=== PATIENT | male | born 1995 | race Caucasian/White ===

== ENCOUNTER 2020-12-09 20:28 | Inpatient (IN) | payer OTHER, SELFPAY ==
[2020-12-09 20:29] VITALS: BP 140/83; PULSE 87; RESP 18; TEMP 36.8; O2SAT 97; BMI 28.5
[2020-12-09 20:47] LABS: Bacteria 0 SEEN /hpf (None Seen); Color, Urine Yellow (Yellow); Glucose, Dipstick Normal (Normal); Ketone-Dipstick Negative (Negative); Leukocyte Esterase-Dipstick Negative /ul (Negative); Mucous, Urine 0 SEEN /hpf (<or=2+); Nitrite-Dipstick Negative (Negative); Occult Blood-Urine Negative /ul (Negative); Protein-Dipstick Negative (Negative); Red Blood Cells-Urine 0 SEEN /hpf (0-5); Squamous Epithelial Cells - UA 0 SEEN /hpf (0-5); Urine Bilirubin Dipstick Negative (Negative); Urine Clarity Clear (Clear); Urine Urobilinogen Normal (Normal); Urine pH 6.5 (5.0 - 8.0); White Blood Cells 0 SEEN /hpf (0-5)
[2020-12-09 21:05] LABS: Absolute Lymphocyte Count 2.08 X10^3/uL (0.83-4.51); Absolute Neutrophil Count 7.7 X10^3/uL (2.0-7.7); Basophil# 0.02 X10^3/uL; Basophil% 0.2 % (0-1); Eosinophil# 0.02 X10^3/uL; Eosinophils% 0.2 % (0-5); Hematocrit 43.6 % (40-54); Hemoglobin 14.2 g/dL (13.0-16.5); Lymphocyte # 2.08 X10^3/ul (0.83-4.51); Lymphocyte % 18.6 % (19-41); Mean Corp Hgb Conc 32.6 g/dL (32-36); Mean Corpuscular Hgb 28.5 pg (27.0-32.0); Mean Corpuscular Volume 87.4 fL (80-94); Mean Platelet Vol. 10.9 fl (6.2-12.0); Monocyte# 1.37 X10^3/uL; Monocyte% 12.2 % (0-10); NRBC Flagged by Analyzer 0 % (0-5); Neutrophil % 68.6 % (47-70); Platelet Count 281 K/mm3 (150-450); RBC Distribution Width CV 12.5 % (11.6-14.6); RBC Distribution Width SD 39.8 fl (35.1-43.9); Red Blood Count 4.99 M/mm3 (4.6-6.2); White Blood Count 11.2 K/mm3 (4.4-11.0)
--- NOTE | 2020-12-09 21:11 | CT_ITS ---
INDICATION: Lower abd pain b/l eval for appendicitis EXAMINATION: CT Abdomen And Pelvis W/ Contrast Injection TECHNIQUE: Helically acquired images were obtained of the abdomen and pelvis after IV contrast. A radiation dose optimization technique was used for this scan. IV Contrast dosage and agent: IV 100mL Isovue-370 Oral contrast: None. COMPARISON: None. FINDINGS: Visualized lung bases: Unremarkable Liver: Diffusely hypodense consistent with fatty liver. Gallbladder: Unremarkable Spleen: Unremarkable Pancreas: Unremarkable Adrenal Glands: Unremarkable Kidneys: Unremarkable Vasculature: Unremarkable GI Tract: Scattered colonic diverticula. Short segment bowel wall thickening of the descending colon with surrounding mesenteric fat stranding. No free air or focal fluid collection. Lymphadenopathy: None Peritoneum: Small volume complex free fluid in the pelvis. Bladder: Unremarkable Reproductive organs: Unremarkable Bones/Soft tissues: No suspicious osseous or soft tissue lesions CT/Abdomen/Pelvis W IV Cont ONLY IMPRESSION: Acute descending colon diverticulitis. No focal fluid collection or free air. There is a small volume of complex free fluid in the pelvis. This could represent a contained perforation. Fatty liver. Electronically Signed: Umesh Welsh MD at 21:56 EDT Tel , Service support ,
[2020-12-09 21:17] LABS: Anion Gap 3 (5-15); BUN 9 mg/dL (7-18); Calcium,Total 9.4 mg/dL (8.5-10.1); Chloride 105 mmol/L (98-107); Creatinine, Serum 0.82 mg/dL (0.70-1.30); EST Glomerular Filtration Rate 120 mL/min (>60); Est Glom Filt Rate - Afr Amer 146 mL/min (>60); Estimated Creatinine Clearance 154.28 ml/min; Glucose 87 mg/dL (74-106); Potassium 3.9 mmol/L (3.5-5.1); Sodium Level 139 mmol/L (136-145)
--- NOTE | 2020-12-09 21:29 | EX.ED.DYSGE1 ---
HPI History of Present Illness Chief Complaint: Abd Pain Informant: patient Narrative Narrative: Patient is a 25-year-old previously healthy male who presents to the emergency department for abdominal pain over the past 24 hours. He states whenever he moves it becomes severe. While at rest it is very minimal typically at a 4 out of 10. Majority the pain is in the left lower quadrant but does go to the right side. He has never had this before. He denies any previous abdominal surgeries. No fevers or chills. No vomiting. He denies any change in bowel movements. No urinary symptoms. The pain does not radiate to his back. No chest pain or shortness of breath. PFSH PFSH Home Medications montelukast 10 mg PO DAILY 12/09/20 [History Last Taken Unknown] Allergy/AdvReac Type Severity Reaction Status Date / Time Penicillins Allergy PT UNSURE Verified 12/09/20 20:33 OF REACTION Social History Smoking Status: Never smoker ROS ROS ED Constitutional Constitutional ED: Denies chills or fever(s) Eyes Eyes: Denies change in vision ENT ENT ED: Denies epistaxis or rhinorrhea Cardiovascular Cardiovascular: Denies chest pain or palpitations Respiratory/Chest Respiratory/Chest: Denies cough or dyspnea Gastrointestinal Gastrointestinal: Reports abdominal pain and constipation; Denies nausea or vomiting Genitourinary Genitourinary ED: Denies dysuria, hematuria or urinary frequency Musculoskeletal Musculoskeletal: Denies back pain or neck pain Integumentary Denies rash Neurologic Neurologic: Denies dizziness, headache(s) or weakness EXAM Physical Exam Const Vital Signs: 12/09/20 20:29 Temperature 98.3 F Temperature Source Temporal Pulse Rate 87 Respiratory Rate 18 Blood Pressure 140/83 H Blood Pressure Mean 102 Pulse Ox 97 Oxygen Delivery Method Room Air Positive well nourished and well developed General Appearance ED: well developed and NAD HEENT Reports normocephalic and head/scalp atraumatic Eyes PERRL and EOMs intact bilaterally Neck supple General: Negative for tenderness Chest Wall inspection of chest normal Resp normal respiratory effort and clear to auscultation bilaterally Auscultation: Negative for rales, rhonchi or wheezes Cardio regular rate, regular rhythm and no murmurs GI normal to inspection, nondistended, normoactive bowel sounds GI Narrative: There is tenderness to light palpation on the left side. There is voluntary guarding. There is mild tenderness on the right lower quadrant but nothing in the upper quadrants. Negative psoas sign. Palpation: soft; Negative for rebound tenderness present Back/Spine no CVA tenderness Extremity normal to inspection General Extremety ED: Negative for edema or tenderness General Extremity: Negative for edema Neuro Sensorium / Orientation: alert Motor Exam: strength 5/5 throughout Psych mental status grossly normal Skin no rashes or lesions noted MDM MDM MDM Narrative Medical decision making narrative: Patient presents to the emergency department for abdominal pain. Patient is very tender in the left lower quadrant. He does have some guarding present. Basic lab work being obtained along with CT scan of the abdomen/pelvis. While at rest the patient's pain is very minimal so we will hold off on pain medications at this time. Patient CT scan showed acute diverticulitis with potential abscess as there is free fluid present. Given patient's significant tenderness and guarding general surgery was consulted., Dr. Bosch evaluated the patient at bedside. He felt the patient likely has Crohn's disease as he has a history of diarrhea since childhood. He recommend the patient be transferred to a facility with gastroenterology coverage. We are currently working on this but bed shortage across the [place] limiting our ability to do this. He is started on Cipro and Flagyl as he does have an unknown reaction to penicillin. Patient otherwise has remained stable throughout ED stay. He is signed out due to end of shift currently awaiting acceptance at outside facility. Lab Data Labs: Laboratory Results - last 24 hr 12/09/20 12/09/20 12/09/20 20:41 20:53 20:53 WBC 11.2 H RBC 4.99 Hgb 14.2 Hct 43.6 MCV 87.4 MCH 28.5 MCHC 32.6 RDW Std Deviation 39.8 RDW Coeff of Dimitrios 12.5 Plt Count 281 MPV 10.9 Immature Gran % (Auto) 0.200 Neut % (Auto) 68.6 Lymph % (Auto) 18.6 L [place] % (Auto) 12.2 H Eos % (Auto) 0.2 Baso % (Auto) 0.2 Absolute Neuts (auto) 7.7 Absolute Lymphs (auto) 2.08 Nucleated RBC % 0 Sodium 139 Potassium 3.9 Chloride 105 Carbon Dioxide 31.0 Anion Gap 3 L BUN 9 Creatinine 0.82 Estim Creat Clear Calc 154.28 Est GFR (MDRD) Af Amer 146 Est GFR (MDRD) Non-Af 120 BUN/Creatinine Ratio 11.0 Glucose 87 Calcium 9.4 Total Bilirubin 0.60 AST 11 L ALT 49 Alkaline Phosphatase 63 Total Protein 8.4 H Albumin 4.6 Globulin 3.8 Albumin/Globulin Ratio 1.2 Lipase Urine Color Yellow Urine Clarity Clear Urine pH 6.5 Ur Specific [place] 1.010 Urine Protein Negative Urine Glucose (UA) Normal Urine Ketones Negative Urine Occult Blood Negative Urine Nitrite Negative Urine Bilirubin Negative Urine Urobilinogen Normal Ur Leukocyte Esterase Negative Urine RBC 0 SEEN Urine WBC 0 SEEN Ur Squamous Epith Cells 0 SEEN Urine Bacteria 0 SEEN Urine Mucus 0 SEEN 12/09/20 20:53 WBC RBC Hgb Hct MCV MCH MCHC RDW Std Deviation RDW Coeff of Dimitrios Plt Count MPV Immature Gran % (Auto) Neut % (Auto) Lymph % (Auto) [place] % (Auto) Eos % (Auto) Baso % (Auto) Absolute Neuts (auto) Absolute Lymphs (auto) Nucleated RBC % Sodium Potassium Chloride Carbon Dioxide Anion Gap BUN Creatinine Estim Creat Clear Calc Est GFR (MDRD) Af Amer Est GFR (MDRD) Non-Af BUN/Creatinine Ratio Glucose Calcium Total Bilirubin AST ALT Alkaline Phosphatase Total Protein Albumin Globulin Albumin/Globulin Ratio Lipase 61 L Urine Color Urine Clarity Urine pH Ur Specific [place] Urine Protein Urine Glucose (UA) Urine Ketones Urine Occult Blood Urine Nitrite Urine Bilirubin Urine Urobilinogen Ur Leukocyte Esterase Urine RBC Urine WBC Ur Squamous Epith Cells Urine Bacteria Urine Mucus Radiography Diagnostic Testing: Radiology Impression Abdomen/Pelvis CT 12/09/20 21:11 IMPRESSION: Acute descending colon diverticulitis. No focal fluid collection or free air. There is a small volume of complex free fluid in the pelvis. This could represent a contained perforation. Fatty liver. Electronically Signed: Umesh Welsh MD at 21:56 EDT Tel , Service support , Discharge Plan Triage Chief Complaint: Abd Pain ED Provider: Bentley Eli Dx/Rx/DC Orders Clinical Impression: Diverticulitis of intestine with abscess Prescriptions: No Action montelukast 10 mg tablet 10 mg PO DAILY RF: 0 Primary Care Provider: Gerardo Santo Referrals: Gerardo Santo MD [Primary Care Provider] - Disposition Disposition: Acute Care Hospital
[2020-12-09 21:48] LABS: Lipase 61 U/L (73-393)
[2020-12-09 21:51] LABS: ALB/GLOB Ratio 1.2 RATIO (0.9-2.4); AST(SGOT) 11 U/L (15-37); Alanine Aminotransfer ALT/SGPT 49 U/L (16-61); Albumin, Serum 4.6 g/dL (3.2-5.0); Alkaline Phosphatase 63 U/L (45-117); Globulin 3.8 g/dL (2.2-4.2); Protein, Total 8.4 g/dL (6.4-8.2)
--- NOTE | 2020-12-09 22:07 | NURSING ---
DR LU PAGED
[2020-12-09] MEDS: Ciprofloxacin 400 MG/200 ML BAG 200 MG IV (22:26)
--- NOTE | 2020-12-09 22:41 | CON.PCM.SX_ITS ---
Assessment & Plan Assessment/Plan (1) Colitis: PLAN: Believe the patient has probably Crohn's disease. He has been hav ing diarrhea for months acute onset of abdominal pain CAT scan shows a fairly thickened sigmoid colon not a significant amount of diverticular disease identified. In this setting I think this represents Crohn's disease. Believe he is going to need to be at a larger institution that has a computer equipment installer and colorectal surgery and I am recommending he be transferred to tertiary referral center. At this present time I do not believe he needs to have an emergent surgical abdomen however if his pain were to increase he is certainly going to have to have that sigmoid colon removed which once again should be done by a colorectal surgeon. HPI Consult Data Date of Consult: 12/09/20 HPI Narrative HPI Narrative: NENA AUSTIN, is a 25 M who presents to the emergency department for abdominal pain over the past 24 hours. He states whenever he moves it becomes severe. While at rest it is very minimal typically at a 4 out of 10. Majority the pain is in the left lower quadrant but does go to the right side. He has never had this before. He denies any previous abdominal surgeries. No fevers or chills. No vomiting. He denies any change in bowel movements. No urinary symptoms. The pain does not radiate to his back. No chest pain or shortness of breath. Patient states that he has been having diarrhea for the last 4 or 5 months and has not seek any medical attention for this. He has no family history of Crohn's disease or ulcerative colitis. PFS Home Medications montelukast 10 mg PO DAILY 12/09/20 [History Last Taken Unknown] Allergy/AdvReac Type Severity Reaction Status Date / Time Penicillins Allergy PT UNSURE Verified 12/09/20 20:33 OF REACTION Social History Smoking Status: Never smoker ROS Cardiovascular Cardiovascular: Denies chest pain or chest pain at rest Respiratory/Chest Respiratory/Chest: Denies cough, dyspnea or shortness of breath at rest Gastrointestinal Gastrointestinal: Reports abdominal pain, bloating and diarrhea; Denies nausea, rectal bleeding or vomiting Lab / Micro Data Result Diagrams: 12/09/20 20:53 12/09/20 20:53 Labs: Laboratory Results - last 24 hr 12/09/20 20:41: Urine Color Yellow, Urine Clarity Clear, Urine pH 6.5, Ur Specific [place] 1.010, Urine Protein Negative, Urine Glucose (UA) Normal, Urine Ketones Negative, Urine Occult Blood Negative, Urine Nitrite Negative, Urine Bilirubin Negative, Urine Urobilinogen Normal, Ur Leukocyte Esterase Negative, Urine RBC 0 SEEN, Urine WBC 0 SEEN, Ur Squamous Epith Cells 0 SEEN, Urine Bacteria 0 SEEN, Urine Mucus 0 SEEN 12/09/20 20:53: WBC 11.2 H, RBC 4.99, Hgb 14.2, Hct 43.6, MCV 87.4, MCH 28.5, MCHC 32.6, RDW Std Deviation 39.8, RDW Coeff of Dimitrios 12.5, Plt Count 281, MPV 10.9, Immature Gran % (Auto) 0.200, Neut % (Auto) 68.6, Lymph % (Auto) 18.6 L, [place] % (Auto) 12.2 H, Eos % (Auto) 0.2, Baso % (Auto) 0.2, Absolute Neuts (auto) 7.7, Absolute Lymphs (auto) 2.08, Nucleated RBC % 0 12/09/20 20:53: Sodium 139, Potassium 3.9, Chloride 105, Carbon Dioxide 31.0, Anion Gap 3 L, BUN 9, Creatinine 0.82, Estim Creat Clear Calc 154.28, Est GFR (MDRD) Af Amer 146, Est GFR (MDRD) Non-Af 120, BUN/Creatinine Ratio 11.0, Glucose 87, Calcium 9.4, Total Bilirubin 0.60, AST 11 L, ALT 49, Alkaline Phosphatase 63, Total Protein 8.4 H, Albumin 4.6, Globulin 3.8, Albumin/Globulin Ratio 1.2 12/09/20 20:53: Lipase 61 L Radiology Impression Abdomen/Pelvis CT 12/09/20 21:11 IMPRESSION: Acute descending colon diverticulitis. No focal fluid collection or free air. There is a small volume of complex free fluid in the pelvis. This could represent a contained perforation. Fatty liver. Electronically Signed: Umesh Welsh MD at 21:56 EDT Tel , Service support ,
--- NOTE | 2020-12-09 22:51 | ED.RN ---
[facility] CALLED FOR TRANSFER
[2020-12-09] MEDS: metroNIDAZOLE 500 MG/100 ML BAG 100 MG IV (23:11)
[2020-12-09 23:12] VITALS: BP 132/76; PULSE 84; RESP 16; O2SAT 98
--- NOTE | 2020-12-09 23:22 | ED.RN ---
PATIENT HAS BEEN ADDED TO THE WAIT LIST AT [facility]
[2020-12-10] VITALS (9 sets, daily range): BP systolic 123–143; BP diastolic 74–88; PULSE 58–87; RESP 14–16; TEMP 36.6; O2SAT 98–100; BMI 28.3
[2020-12-10] MEDS: Ketorolac 30 MG/ML Syringe IV (11:40)
--- NOTE | 2020-12-10 13:37 | NURSING ---
CALLED [facility] FOR UPDATE ON BED STATUS. NOTHING YET. NOT HIGH PRIORITY, NOT LOW.
--- NOTE | 2020-12-10 16:09 | ED.RN ---
PT INQUIRING ABOUT GOING HOME AND F/U OUT PATIENT. DR MUSE AND ALO CONSULTED ON MATTER. FEEL ITS BEST FOR HIM TO STAY UNDER OBSERVATION WHILE WAITING FOR TRASNFER. AND ARE LOOKING TO ADMIT WHILE WAITING ON TRANSFER. PT UPDATED ON PLAN.
--- NOTE | 2020-12-10 17:10 | ED.RN ---
DR VERA AT BEDSIDE. TO ADMIT PT TO MED/SURG TO MONITOR.
--- NOTE | 2020-12-10 17:25 | PCM.HP.STD ---
Documented by User: Rosa M Brooks NP-[place] 12/10/20 17:42 HPI - General HPI Narrative NENA AUSTIN, is a 25 M who presents with complaints of abdominal pain. Patient states that yesterday when he presented to the ER his abdomen was painful with any palpation and felt tight. Patient was held in ER awaiting a transfer to [facility] due to possible contained perforation however there are no beds available so he will be admitted to our MedSurg unit. Patient states today he is feeling better after receiving IV fluids and antibiotics. Patient denies fever, chills, shortness of breath, cough, chest pain, nausea, vomiting at this time. [facility] Home Medications montelukast 10 mg PO DAILY 12/09/20 [History Last Taken Unknown] cetirizine [Zyrtec] 10 mg PO DAILY 12/10/20 [History Last Taken 12/09/20] fluticasone propionate [Flonase] 1 spray INTRANASAL DAILY 12/10/20 [History Last Taken Unknown] Allergy/AdvReac Type Severity Reaction Status Date / Time Penicillins Allergy PT UNSURE Verified 12/09/20 20:33 OF REACTION Surgical History (Updated 12/10/20 @ 18:03 by Jessica Hector) [place] teeth extracted Social History Smoking Status: Never smoker ROS Constitutional Constitutional: Denies anorexia, chills, fatigue, fever(s) or weakness Cardiovascular Cardiovascular: Denies chest pain, edema or palpitations Respiratory/Chest Respiratory/Chest: Denies cough, shortness of breath at rest or shortness of breath with exertion Gastrointestinal Gastrointestinal: Reports abdominal pain and constipation; Denies diarrhea, nausea or vomiting Genitourinary Genitourinary: Denies dysuria Musculoskeletal Musculoskeletal: Denies back pain, extremity pain, joint pain or joint stiffness Integumentary Integumentary: Denies dry skin Neurologic Neurologic: Denies abnormal gait, abnormal speech, confusion, dizziness or focal weakness Psychiatric Psychiatric: Denies anxiety or depression Endocrine Endocrinology: Denies change in body appearance Hematologic/Lymphatic Hematologic/Lymphatic: Denies easy bleeding or easy bruising Vital Signs Vital Signs Vital Signs: 12/09/20 20:29 12/09/20 23:12 12/10/20 02:52 Temperature 98.3 F Temperature Source Temporal Pulse Rate 87 84 Respiratory Rate 18 16 16 Blood Pressure 140/83 H 132/76 H Blood Pressure Mean 102 94 Pulse Ox 97 98 Oxygen Delivery Method Room Air Room Air 12/10/20 05:37 12/10/20 07:27 12/10/20 11:19 Temperature 97.8 F Temperature Source Oral Pulse Rate 58 L 71 61 Respiratory Rate 16 16 14 Blood Pressure 143/77 H 130/88 H 129/79 H Blood Pressure Mean 99 102 95 Pulse Ox 98 100 99 Oxygen Delivery Method Room Air Room Air Room Air 12/10/20 13:54 12/10/20 15:57 12/10/20 17:08 Temperature Temperature Source Pulse Rate 87 72 77 Respiratory Rate 16 16 16 Blood Pressure 123/74 H 128/74 H 124/87 H Blood Pressure Mean 90 92 99 Pulse Ox 99 99 99 Oxygen Delivery Method Room Air Weight Weight: 216 lb Body Mass Index (BMI) 28.5 Physical Exam Const alert, oriented x3 and no apparent distress General Appearance: cooperative HEENT normocephalic and head/scalp atraumatic Eyes conjunctivae normal and no scleral icterus Neck supple and no JVD General: trachea midline Resp normal respiratory effort, normal air movement and clear to auscultation bilaterally Cardio regular rate, regular rhythm, S1 normal heart sound and S2 normal heart sound GI normal to inspection, nondistended, normoactive bowel sounds, soft to palpation and non-tender Extremity normal capillary refill and no clubbing, cyanosis or edema General Extremity: no tenderness to palpation of joints or extremities Skin General Skin Exam: no breakdown and turgor normal Lesions: no lesions Rashes: no rashes Neuro no focal motor deficits and no sensory deficits noted Speech: speech normal Motor Exam: Negative for general weakness Psych thought process normal, cooperative and affect normal Appearance: appropriate Results Lab / Micro Data Result Diagrams: 12/09/20 20:53 12/09/20 20:53 Labs: Laboratory Results - last 24 hr 12/09/20 20:41: Urine Color Yellow, Urine Clarity Clear, Urine pH 6.5, Ur Specific [place] 1.010, Urine Protein Negative, Urine Glucose (UA) Normal, Urine Ketones Negative, Urine Occult Blood Negative, Urine Nitrite Negative, Urine Bilirubin Negative, Urine Urobilinogen Normal, Ur Leukocyte Esterase Negative, Urine RBC 0 SEEN, Urine WBC 0 SEEN, Ur Squamous Epith Cells 0 SEEN, Urine Bacteria 0 SEEN, Urine Mucus 0 SEEN 08/23/21 20:53: WBC 11.2 H, RBC 4.99, Hgb 14.2, Hct 43.6, MCV 87.4, MCH 28.5, MCHC 32.6, RDW Std Deviation 39.8, RDW Coeff of Dimitrios 12.5, Plt Count 281, MPV 10.9, Immature Gran % (Auto) 0.200, Neut % (Auto) 68.6, Lymph % (Auto) 18.6 L, [place] % (Auto) 12.2 H, Eos % (Auto) 0.2, Baso % (Auto) 0.2, Absolute Neuts (auto) 7.7, Absolute Lymphs (auto) 2.08, Nucleated RBC % 0 12/09/20 20:53: Sodium 139, Potassium 3.9, Chloride 105, Carbon Dioxide 31.0, Anion Gap 3 L, BUN 9, Creatinine 0.82, Estim Creat Clear Calc 154.28, Est GFR (MDRD) Af Amer 146, Est GFR (MDRD) Non-Af 120, BUN/Creatinine Ratio 11.0, Glucose 87, Calcium 9.4, Total Bilirubin 0.60, AST 11 L, ALT 49, Alkaline Phosphatase 63, Total Protein 8.4 H, Albumin 4.6, Globulin 3.8, Albumin/Globulin Ratio 1.2 12/09/20 20:53: Lipase 61 L Micro: Microbiology 12/09/20 23:15 Mucosa - Nose SARS-CoV-2 Antigen (Rapid) - Final Radiology Impression Abdomen/Pelvis CT 12/09/20 21:11 IMPRESSION: Acute descending colon diverticulitis. No focal fluid collection or free air. There is a small volume of complex free fluid in the pelvis. This could represent a contained perforation. Fatty liver. Electronically Signed: Umesh Welsh MD at 21:56 EDT Tel , Service support , Assessment & Plan Assessment/Plan (1) Diverticulitis of intestine with abscess: QUALIFIERS: Diverticulitis bleeding: without bleeding Diverticulitis site: large intestine Qualified Code(s): K57.20 - Diverticulitis of large intestine with perforation and abscess without bleeding (2) Colitis: PLAN: 1. Diverticulitis of intestine with abscess and colitis with contained perforation -Admit to [facility] -Continue Cipro and Flagyl, patient received first dose in ER -Full liquid diet ordered -Consult surgery, Dr. Bosch saw patient during initial evaluation in ER. -CBC and BMP ordered -Vital signs per protocol -As needed Tylenol and morphine ordered for pain DVT prophylaxis-subcu Lovenox This patient was seen by AURELIANO Chandler under the supervision of Dr. Malin. Documented by User: Dr. Dennis Malin, 12/10/20 18:38 HPI - General General Date of Admission: 12/10/20 [facility] Home Medications montelukast 10 mg PO DAILY 12/09/20 [History Last Taken Unknown] cetirizine [Zyrtec] 10 mg PO DAILY 12/10/20 [History Last Taken 12/09/20] fluticasone propionate [Flonase] 1 spray INTRANASAL DAILY 12/10/20 [History Last Taken Unknown] Allergy/AdvReac Type Severity Reaction Status Date / Time Penicillins Allergy PT UNSURE Verified 12/09/20 20:33 OF REACTION Surgical History (Updated 12/10/20 @ 18:03 by Jessica Hector) [place] teeth extracted Social History Smoking Status: Never smoker Results Lab / Micro Data Result Diagrams: 12/09/20 20:53 12/09/20 20:53 Charges/Coding Addendum Addendum: Patient was seen and examined independently of Mercedes Brooks today in the emergency room, he was seen yesterday for complaints of left-sided abdominal pain and the work-up showed possible diverticulitis and also abdominal fluid and there was a question of a possible perforation, general surgery was contacted and requested the patient be transferred to [facility] for further care, [facility] call today to states that they did not have a bed and they were not expecting to have a bed open for many hours, due to this, the patient will be admitted to [place] [id number] and seen by general surgery here. Patient tells me that his abdominal discomfort is greatly improved today, he feels as if he could have a bowel movement today he has not had 1 since he has been in the emergency room. Patient denies any blood in stool, he states that for a few days prior to coming into the ER he has had many loose stools-he denies any watery stools. On examination he appeared in good health and spirits. Vital signs as documented. Skin warm and dry and without overt rashes. Neck without JVD, neck was supple, trachea midline, thyroid was normal. Lungs clear bilaterally, normal air movement was noted. Heart exam notable for regular rhythm, normal sounds and absence of murmurs, rubs or gallops. Abdomen unremarkable and without evidence of organomegaly, masses, or abdominal aortic enlargement. Bowel sounds are present, abdomen is not distended. Extremities nonedematous, no cyanosis was noted, no clubbing was noted. Neuro: Cranial nerves II through XII are grossly intact, no focal motor deficits were noted, sensation to light touch and pinprick intact, motor exam 5/5 throughout. Psych: Patient is alert and oriented x3, he does not appear anxious or depressed, he does not appear agitated. Patient's abdomen appears soft today on examination, there is no rebound abdominal tenderness noted. Patient will be admitted to [place] [address] and he will be maintained on IV antibiotics and seen by general surgery. It is possible patient will not need to be transferred to [facility] for further care if he continues to improve. I have reviewed Mercedes Brooks's history and physical including her medical assessment and plan of care and endorse it. Visit Charges Inpatient E&M: 70226 Init Hosp L3
--- NOTE | 2020-12-10 17:31 | NURSING ---
317 MARISELA DIVERTICULITIS, COLITIS
--- NOTE | 2020-12-10 18:06 | PCS.PANDOC ---
PANDEMIC DOCUMENTATION INITIATED: Date: 12/02/2020 Time: 190
[2020-12-10] MEDS: metroNIDAZOLE 500 MG/100 ML BAG 100 MG IV (20:10)
[2020-12-10] MEDS: 0.9% Saline Lock 10 ML Syringe IV (20:11)
[2020-12-10] MEDS: Ciprofloxacin 400 MG/200 ML BAG 200 MG IV (21:35)
[2020-12-11 02:24] VITALS: BP 127/59; PULSE 61; RESP 16; TEMP 36.4; O2SAT 98
[2020-12-11] MEDS: metroNIDAZOLE 500 MG/100 ML BAG 100 MG IV ×3 (06:21→22:58)
[2020-12-11 06:24] VITALS: BP 121/71; PULSE 68; RESP 16; TEMP 36.7; O2SAT 98
[2020-12-11 07:35] LABS: Absolute Lymphocyte Count 1.56 X10^3/uL (0.83-4.51); Absolute Neutrophil Count 3.6 X10^3/uL (2.0-7.7); Basophil# 0.03 X10^3/uL; Basophil% 0.5 % (0-1); Eosinophil# 0.08 X10^3/uL; Eosinophils% 1.4 % (0-5); Hematocrit 41.2 % (40-54); Hemoglobin 13.5 g/dL (13.0-16.5); Lymphocyte # 1.56 X10^3/ul (0.83-4.51); Lymphocyte % 26.4 % (19-41); Mean Corp Hgb Conc 32.8 g/dL (32-36); Mean Corpuscular Hgb 29.1 pg (27.0-32.0); Mean Corpuscular Volume 88.8 fL (80-94); Mean Platelet Vol. 11.1 fl (6.2-12.0); Monocyte# 0.62 X10^3/uL; Monocyte% 10.5 % (0-10); NRBC Flagged by Analyzer 0 % (0-5); Platelet Count 251 K/mm3 (150-450); RBC Distribution Width CV 12.5 % (11.6-14.6); RBC Distribution Width SD 40.6 fl (35.1-43.9); Red Blood Count 4.64 M/mm3 (4.6-6.2); White Blood Count 5.9 K/mm3 (4.4-11.0)
--- NOTE | 2020-12-11 07:51 | PN.HOSP_ITS ---
Subjective Subjective Patient is a 25-year-old gentleman in relatively good health who presented to the emergency department with abdominal pain. Imaging studies obtained on admission demonstrated Acute descending colon diverticulitis. No focal fluid collection or free air. There is a small volume of complex free fluid in the pelvis. This could represent a contained perforation. Objective Data Objective Data Vital Signs: Vital Signs Temp Pulse Resp BP Pulse Ox 98.1 F 68 16 121/71 H 98 12/11/20 06:24 12/11/20 06:24 12/11/20 06:24 12/11/20 06:24 12/11/20 06:24 Oxygen Delivery Method Room Air Weight: 97.5 kg Body Mass Index (BMI) 28.3 Intake & Output: Intake and Output for Last 24 Hours 12/09/20 12/10/20 12/11/20 23:59 23:59 23:59 Intake Total 150 / 150 450 / 450 400 / 400 Balance 150 / 150 450 / 450 400 / 400 Lab / Micro Data Result Diagrams: 12/11/20 06:20 12/11/20 06:20 Labs: Laboratory Results - last 24 hr 12/11/20 06:20: WBC 5.9, RBC 4.64, Hgb 13.5, Hct 41.2, MCV 88.8, MCH 29.1, MCHC 32.8, RDW Std Deviation 40.6, RDW Coeff of Dimitrios 12.5, Plt Count 251, MPV 11.1, Immature Gran % (Auto) 0.200, Neut % (Auto) 61.0, Lymph % (Auto) 26.4, [place] % (Auto) 10.5 H, Eos % (Auto) 1.4, Baso % (Auto) 0.5, Absolute Neuts (auto) 3.6, Absolute Lymphs (auto) 1.56, Nucleated RBC % 0 Micro: Microbiology 12/09/20 23:15 Mucosa - Nose SARS-CoV-2 Antigen (Rapid) - Final Physical Exam Narrative GENERAL: cooperative HEENT: Atraumatic; EYES; Anicteric, Normal Conjunctiva NECK; supple, normal thyroid, RESPIRATORY: Diminished to auscultation CARDIOVASCULAR: Regular S1 S2, GI: soft, normoactive bowel sounds, : No Renal angle tenderness;LLQ tenderness EXTREMITIES: No edema, no clubbing, MUSCULOSKELETAL: no muscle waisting NEURO: Awake; no lateralizing signs. SKIN: No Rash PSYCH; Flat affect Assessment & Plan Assessment/Plan (1) Diverticulitis of intestine with abscess: QUALIFIERS: Diverticulitis site: large intestine Diverticulitis bleeding: without bleeding Qualified Code(s): K57.20 - Diverticulitis of large intestine with perforation and abscess without bleeding (2) Colitis: PLAN: Patient is a 25-year-old gentleman in relatively good health who presented to the emergency department with abdominal pain. Imaging studies obtained on admission demonstrated Acute descending colon diverticulitis. No focal fluid collection or free air. There is a small volume of complex free fluid in the pelvis. This could represent a contained perforation. 1. Acute descending colon diverticulitis with suspected contained perforation ?Plan also patient to have been transferred to the [facility] per recommendations from Dr. Bosch with general surgery however bed was not available patient subsequently admitted to regular nursing floor pending bed availability. Empirically started on Cipro and Flagyl with consultation placed to Dr. Bosch 2. Allergic rhinitis ?Currently asymptomatic 3. DVT prophylaxis ?Was started on Lovenox on admission Charges/Coding Visit Charges Inpatient E&M: 67758 Subs Hosp L2
[2020-12-11 07:55] LABS: Anion Gap 4 (5-15); BUN 11 mg/dL (7-18); BUN/Creat Ratio 15.9 RATIO (10-20); Calcium,Total 9.2 mg/dL (8.5-10.1); Chloride 107 mmol/L (98-107); Creatinine, Serum 0.69 mg/dL (0.70-1.30); EST Glomerular Filtration Rate 146 mL/min (>60); Est Glom Filt Rate - Afr Amer 177 mL/min (>60); Estimated Creatinine Clearance 183.35 ml/min; Glucose 91 mg/dL (74-106); Sodium Level 139 mmol/L (136-145)
[2020-12-11 08:12] VITALS: O2SAT 97
--- NOTE | 2020-12-11 10:35 | CASEMGMT ---
RIZWANA ROMO Assessment: Face to Face with pt for initial transition planning/care coordination assessment. RN DEMETRIUS introduced self and role at [facility], pt voices understanding and consents to assessment. Pt is A/O x4 and answers all questions appropriately at this time. Pt sitting up in bed in no distress. Care providers, pharmacy, and demographics verified/updated. Admitting Dx: diverticulitis, possible colitis PCP:Hansa Specialists: Pt denies Preferred Pharmacy: [facility] Insurance: [facility] Dining Secretary Prescription Benefit: yes LW/HPOA: Pt denies LW/DPOA LNOK: Khris Bah, spouse Living Arrangements: Pt states he lives with his in a split level house with 2 steps to enter. Pt reports being I in ADL's and denies concerns at home. Transportation: Pt drives self and denies concerns with transportation. DME/HHC/SNF: Pt denies any DME or hx of HHC. Pt states no concerns with going home at time of dc. Pt states no further concerns/needs. CM to follow. Advised pt to ask CM if any further question/concerns/needs arise, voices understanding. Pt Goal: Home Plan: Home
[2020-12-11 11:00] VITALS: BP 135/79; PULSE 65; RESP 16; TEMP 36.6; O2SAT 99
[2020-12-11] MEDS: Ciprofloxacin 400 MG/200 ML BAG 200 MG IV ×2 (11:03→20:49)
[2020-12-11] MEDS: Loratadine 10 MG Tablet PO (11:03)
[2020-12-11] MEDS: Fluticasone 0.05% 1 SPRAY NASAL.SRY NASAL (11:09)
[2020-12-11 16:36] VITALS: BP 130/84; PULSE 70; RESP 14; TEMP 37.1; O2SAT 99
[2020-12-11 20:54] VITALS: BP 143/95; PULSE 58; RESP 16; TEMP 36.8; O2SAT 100
[2020-12-12 02:39] VITALS: BP 127/74; PULSE 61; RESP 16; TEMP 36.6; O2SAT 98
[2020-12-12] MEDS: metroNIDAZOLE 500 MG/100 ML BAG 100 MG IV (05:27)
--- NOTE | 2020-12-12 05:54 | PCM.PN.SRG ---
Subjective Subjective Pain is significantly improved. Objective Data Objective Data Abdomen is soft Vital Signs: Vital Signs Temp Pulse Resp BP Pulse Ox 97.9 F 61 16 127/74 H 98 12/12/20 02:39 12/12/20 02:39 12/12/20 02:39 12/12/20 02:39 12/12/20 02:39 Oxygen Delivery Method Room Air Weight: 214 lb 15.211 oz Body Mass Index (BMI) 28.3 Intake & Output: Intake and Output for Last 24 Hours 12/10/20 12/11/20 12/12/20 23:59 23:59 23:59 Intake Total 450 / 450 2240 / 2240 Balance 450 / 450 2240 / 2240 Lab / Micro Data Result Diagrams: 12/11/20 06:20 12/11/20 06:20 Labs: Laboratory Results - last 24 hr 12/11/20 06:20: WBC 5.9, RBC 4.64, Hgb 13.5, Hct 41.2, MCV 88.8, MCH 29.1, MCHC 32.8, RDW Std Deviation 40.6, RDW Coeff of Dimitrios 12.5, Plt Count 251, MPV 11.1, Immature Gran % (Auto) 0.200, Neut % (Auto) 61.0, Lymph % (Auto) 26.4, [place] % (Auto) 10.5 H, Eos % (Auto) 1.4, Baso % (Auto) 0.5, Absolute Neuts (auto) 3.6, Absolute Lymphs (auto) 1.56, Nucleated RBC % 0 12/11/20 06:20: Sodium 139, Potassium 4.0, Chloride 107, Carbon Dioxide 28.0, Anion Gap 4 L, BUN 11, Creatinine 0.69 L, Estim Creat Clear Calc 183.35, Est GFR (MDRD) Af Amer 177, Est GFR (MDRD) Non-Af 146, BUN/Creatinine Ratio 15.9, Glucose 91, Calcium 9.2 Micro: Microbiology 12/09/20 23:15 Mucosa - Nose SARS-CoV-2 Antigen (Rapid) - Final Assessment & Plan Assessment/Plan (1) Colitis: PLAN: Okay for patient to be discharged I will follow the patient up in the office with an outpatient endoscopy
[2020-12-12 07:48] VITALS: O2SAT 97
[2020-12-12 08:00] VITALS: BP 141/84; PULSE 73; RESP 14; TEMP 36.3; O2SAT 98
[2020-12-12] MEDS: Fluticasone 0.05% 1 SPRAY NASAL.SRY NASAL (08:02)
[2020-12-12] MEDS: Loratadine 10 MG Tablet PO (08:03)
[2020-12-12] MEDS: Montelukast 10 MG Tablet PO (08:03)
--- NOTE | 2020-12-12 08:35 | DCINST_ITS ---
Discharge Instructions Diet Discharge Diet: Soft diet (For 4 to 5 days then advance to regular diet.) Activity Discharge Activity: Return to Normal Activity Weight Bearing Status: Weight bearing as tolerated Dressing / Incision Call your doctor if you observe: Fever of 101 or Higher, Coldness, Increased Pain, Numbness or Tingling, Change in Color, Inability to urinate, Shortness of breath, Dizziness, Swelling in the ankles, Chest pain, Prolonged hiccupping, Increased palpitations (irregular heartbeat), Calf discomfort and Uncontrolled pain Follow Up Care Test Results: Test results from this visit will be discussed in further detail at your follow-up appointment, if applicable. Discharge Plan Admission Admit Date/Time: 12/10/20 17:24 Primary Reason for Your Visit: Descending colon Diverticulitis Attending Provider: Derrell Saldana Primary Care Provider: Gerardo Santo Consulting Providers: Sloan Bosch Instructions Patient Instructions: ED Diverticulitis Additional Instructions / Restrictions: Lactobacillus [id number], 1 tablet twice daily for 7 days. Discharge Orders/Prescriptions Prescriptions: New ciprofloxacin HCl [Cipro] 500 mg tablet 500 mg PO BID Qty: 14 RF: 0 metronidazole [Flagyl] 500 mg tablet 500 mg PO TID Qty: 20 RF: 0 Continued montelukast 10 mg tablet 10 mg PO DAILY RF: 0 cetirizine [Zyrtec] 10 mg Tablet 10 mg PO DAILY RF: 0 fluticasone propionate 50 mcg/actuation [place],Suspension 1 spray INTRANASAL DAILY RF: 0 Referrals / Follow Up: Gerardo Santo MD [Primary Care Provider] - In 1 Week Sloan Bosch MD [STAFF PHYSICIAN] - Within 2 Weeks (For complicated diverticulitis. To schedule colonoscopy) Disposition Disposition (needs filled in before D/C Order can be placed): Home, Self Care
--- NOTE | 2020-12-12 08:35 | PCM.DC.SUM ---
Providers Date of Admission: 12/10/20 Primary Care Physician: Dr. Gerardo Santo MD Consultations 12/10/20 17:49 Consult: General Surgery Routine Consulting Provider: Sloan Bosch Reason for Consult: colitis EMERGENT Consult: No MD Notified: Yes Date Notified: 12/10/20 Time Notified: 17:15 Method of Notification: Provider Initiated Reason For Visit: DIVERTICULITIS, POSSIBLE COLITIS Diagnosis Discharge Diagnosis (1) Colitis: Status: Acute Code(s): K52.9 - Noninfective gastroenteritis and colitis, unspecified Medications at Discharge Home Medications montelukast 10 mg PO DAILY 12/09/20 cetirizine [Zyrtec] 10 mg PO DAILY 12/10/20 fluticasone propionate 1 spray INTRANASAL DAILY 12/10/20 ciprofloxacin HCl [Cipro] 500 mg PO BID #14 tab 12/12/20 metronidazole [Flagyl] 500 mg PO TID #20 tab 12/12/20 Hospital Course Summary of Care Provided Hospital Course: Patient is a 25-year-old gentleman with no significant past medical history was admitted with abdominal pain, predominantly in the left lower quadrant for 4 hours. No nausea, vomiting, fever chills or change in bowel movement. CT abdomen was done which showed acute descending colon diverticulitis with no focal fluid collection or free air but small volume of free fluid in pelvis which raises suspicion of contained perforation. General surgery Dr. Bosch was consulted from ER, Initially plan was to transfer to [facility] as per Dr. Bosch recommendation but was admitted because of nonavailability of bed in [facility]. Empirically patient was started on Cipro and Flagyl with history of penicillin allergy. Patient improved on medical treatment and tolerated clear liquid and soft diet. Seen by surgeon today and advised discharged and follow-up as an outpatient to schedule colonoscopy. Discussed with Dr. Bosch. His comorbidity allergic rhinitis which is currently asymptomatic. Discharge meds reconciliation done. Prescription for Cipro and Flagyl sent to the patient's pharmacy. Advised probiotic for 7 days. Discharge medication reconciliation done. Discharge follow-up instructions completed. Discharge process discussed with the patient and all questions were answered to patient's satisfaction. Total time spent, exact 35 minutes on discharge meds reconciliation, examination, coordination of care with nurses and ancillary staff, review of imaging and blood test and discussion with the patient on follow-up instructions Physical Exam Narrative Seen and examined. No nausea, vomiting or abdominal pain General: Alert, Oriented x3, Cooperative HEENT: Atraumatic, PERRLA, EOMI, Normocephalic Oral: No Gingival or Mucosal Lesions/ Ulcerations Neck: Supple, No JVD, Negative Carotid Bruits Lungs: Air entry equal in bilateral lung bases. No crepitation/rhonchi Cardiovascular: Regular rate, Regular Rhythm, Normal S1, Normal S2, No murmurs Abdomen: Bowel Sounds Present, Soft, Non Tender, Non-Distended. No palpable mass : No renal angle tenderness. No suprapubic tenderness. Extremities: No edema, Capillary Refill Less than 3 Seconds Skin: No rashes, No breakdown Musculoskeletal: No Tenderness to Palpation of Joints or Extremities Neurological: Cranial nerves II-XII grossly intact, DTR 2+/4 and Symmetrical, Neuro grossly intact Psych/Mental Status: Normal Affect, Appropriate. Weight / BMI Weight Weight: 214 lb 15.211 oz Body Mass Index (BMI) 28.3 ABG / Lab / Microbiology Data Result Diagrams: 12/11/20 06:20 12/11/20 06:20 Microbiology: Microbiology 12/09/20 23:15 Mucosa - Nose SARS-CoV-2 Antigen (Rapid) - Final Meaningful Use Info Meaningful Use Diagnoses (Choose all that apply): None applicable Discharge Plan Admission Admit Date/Time: 12/10/20 17:24 Primary Reason for Your Visit: Descending colon Diverticulitis Attending Provider: Derrell Saldana Primary Care Provider: Gerardo Santo Consulting Providers: Sloan Bosch Instructions Patient Instructions: ED Diverticulitis Additional Instructions / Restrictions: Lactobacillus [id number], 1 tablet twice daily for 7 days. Discharge Orders/Prescriptions Prescriptions: New ciprofloxacin HCl [Cipro] 500 mg tablet 500 mg PO BID Qty: 14 RF: 0 metronidazole [Flagyl] 500 mg tablet 500 mg PO TID Qty: 20 RF: 0 Continued montelukast 10 mg tablet 10 mg PO DAILY RF: 0 cetirizine [Zyrtec] 10 mg Tablet 10 mg PO DAILY RF: 0 fluticasone propionate 50 mcg/actuation [place],Suspension 1 spray INTRANASAL DAILY RF: 0 Referrals / Follow Up: Sloan Bosch MD [STAFF PHYSICIAN] - Within 2 Weeks (For complicated diverticulitis. To schedule colonoscopy) Gerardo Santo MD [Primary Care Provider] - In 1 Week Disposition Disposition (needs filled in before D/C Order can be placed): Home, Self Care Charges/Coding Visit Charges Inpatient E&M: 16663 Disch Hosp
[2020-12-12] MEDS: Ciprofloxacin 400 MG/200 ML BAG 200 MG IV (09:56)
[2020-12-12 13:50] VITALS: BP 130/86; PULSE 60; RESP 16; TEMP 36.3; O2SAT 100
== END 2020-12-12 14:03 | disposition home or self-care (01) | DRG 392 ==
LOC: ED 12-10 11:17 → MS3 12-10 17:37
PROVIDERS: Emergency Medicine; Nurse Practitioner Family; Admitting Provider Internal Medicine; Emergency Provider Emergency Medicine; PCP Family Medicine; Visit Provider Internal Medicine
DX: K57.20 Diverticulitis of large intestine with perforation and abscess without bleeding (principal); K50.90 Crohn's disease, unspecified, without complications; K52.9 Noninfective gastroenteritis and colitis, unspecified; J30.9 Allergic rhinitis, unspecified; Z88.0 Allergy status to penicillin; K76.0 Fatty (change of) liver, not elsewhere classified
CPT/HCPCS: 36415; 74177; 80048; 80053; 81001; 83690; 85025; 87426; 99285; J7030; J7050; Q9967; A4216; J0744

== ENCOUNTER 2022-04-18 09:03 | Emergency (ER) | payer OTHER, SELFPAY ==
[2022-04-18 09:03] VITALS: BP 135/76; PULSE 72; RESP 16; TEMP 36.3; O2SAT 98; BMI 22.9
--- NOTE | 2022-04-18 09:54 | CT_ITS ---
STUDY: CT ABDOMEN AND PELVIS WITH CONTRAST REASON FOR EXAM: Male, 26 years old. Abdominal pain -- RUQ RADIATION DOSAGE (If Supplied By Facility): CTDIvol = ( 16.39 ) mGy, DLP = ( 1328.00 ) mGycm TECHNIQUE: Transaxial images were obtained from the dome of the diaphragm to the symphysis pubis with oral contrast. Oral and amp; IV Gastrografin and amp; 100mL Isovue-370 was administered. Sagittal and coronal images were reconstructed. Individualized dose optimization techniques were used for this CT. COMPARISON: CT abdomen and pelvis 12/09/2020 FINDINGS: The visualized lung bases are unremarkable. The visualized portions of the heart are within normal limits. There is decreased attenuation of the liver consistent with steatosis. Minimal stable density in the gallbladder lumen likely tiny calculi/sludge. Normal spleen. Normal pancreas. Normal bilateral adrenal glands. Normal right kidney. Normal left kidney. There is a small hiatal hernia. Normal small intestine. There are few scattered colonic diverticula consistent with diverticulosis. Moderate amount of retained fecal material. The appendix is visualized and appears normal. Normal abdominal aorta. Normal inferior vena cava. Normal retroperitoneum. Normal urinary bladder. Normal abdominal wall. Stable minimal levoscoliosis. CT/Abdomen/Pelvis WITH Contrast IMPRESSION: There is no appendicitis, colitis, ascites, abscess, collection, perforation or obstruction. Mild colonic diverticulosis, hepatic steatosis, tiny gallbladder calculi or sludge and minimal levoscoliosis are stable findings. Electronically Signed: Milagros Renner MD at 11:47 EST Reading Location ID and State: , Service support ,
[2022-04-18] MEDS: Morphine 4 MG/ML Syringe IV (10:04)
[2022-04-18] MEDS: Ondansetron 4 MG/2 ML Vial IV (10:04)
[2022-04-18] MEDS: 0.9% Normal Saline 1,000 ML 1000 ML IV (10:04)
[2022-04-18 10:06] LABS: Absolute Lymphocyte Count 1.37 X10^3/uL (0.83-4.51); Absolute Neutrophil Count 2.6 X10^3/uL (2.0-7.7); Basophil# 0.02 X10^3/uL; Basophil% 0.4 % (0-1); Eosinophil# 0.06 X10^3/uL; Eosinophils% 1.3 % (0-5); Hematocrit 42.7 % (40-54); Hemoglobin 14.3 g/dL (13.0-16.5); Lymphocyte # 1.37 X10^3/ul (0.83-4.51); Lymphocyte % 29.8 % (19-41); Mean Corp Hgb Conc 33.5 g/dL (32-36); Mean Corpuscular Hgb 29.1 pg (27.0-32.0); Mean Platelet Vol. 11.1 fl (6.2-12.0); Monocyte# 0.54 X10^3/uL; Monocyte% 11.8 % (0-10); NRBC Flagged by Analyzer 0 % (0-5); Neutrophil # 2.59 X10^3/uL (2.7-7.7); Neutrophil % 56.5 % (47-70); Platelet Count 252 K/mm3 (150-450); RBC Distribution Width CV 12.3 % (11.6-14.6); RBC Distribution Width SD 39.2 fl (35.1-43.9); Red Blood Count 4.91 M/mm3 (4.6-6.2); White Blood Count 4.6 K/mm3 (4.4-11.0)
[2022-04-18 10:24] LABS: ALB/GLOB Ratio 1.4 RATIO (0.9-2.4); AST(SGOT) 58 U/L (15-37); Alanine Aminotransfer ALT/SGPT 144 U/L (16-61); Albumin, Serum 4.5 g/dL (3.2-5.0); Alkaline Phosphatase 61 U/L (45-117); Anion Gap 3 (5-15); BUN 12 mg/dL (7-18); BUN/Creat Ratio 14.6 RATIO (10-20); Calcium,Total 9.2 mg/dL (8.5-10.1); Chloride 108 mmol/L (98-107); Creatinine, Serum 0.82 mg/dL (0.70-1.30); EST Glomerular Filtration Rate 119 mL/min (>60); Est Glom Filt Rate - Afr Amer 144 mL/min (>60); Estimated Creatinine Clearance 195.33 ml/min; Globulin 3.3 g/dL (2.2-4.2); Glucose 96 mg/dL (74-106); Lipase 79 U/L (73-393); Potassium 4.2 mmol/L (3.5-5.1); Protein, Total 7.8 g/dL (6.4-8.2); Sodium Level 139 mmol/L (136-145)
[2022-04-18 10:38] LABS: Bacteria 0 SEEN /hpf (None Seen); Color, Urine Yellow (Yellow); Glucose, Dipstick Normal (Normal); Ketone-Dipstick Negative (Negative); Leukocyte Esterase-Dipstick Negative /ul (Negative); Mucous, Urine 0 SEEN /hpf (<or=2+); Nitrite-Dipstick Negative (Negative); Occult Blood-Urine Negative /ul (Negative); Protein-Dipstick Negative (Negative); Red Blood Cells-Urine 0 SEEN /hpf (0-5); Specific Gravity, Urine 1.005 (1.002-1.030); Squamous Epithelial Cells - UA 0 SEEN /hpf (0-5); Urine Bilirubin Dipstick Negative (Negative); Urine Clarity Clear (Clear); Urine Urobilinogen Normal (Normal); Urine pH 6.5 (5.0 - 8.0); White Blood Cells 0 SEEN /hpf (0-5)
--- NOTE | 2022-04-18 11:04 | EDS_ITS ---
HPI HPI - GI History of Present Illness Chief Complaint: Abd Pain Informant: patient Abdominal Pain/Flank Pain Onset: Weeks (1) Context: Gradual Onset Timing: Continuous Quality: Aching and Sharp (At times) Location: RUQ Worsened by: Nothing Relieved by: - (Bowel movement slightly helps) Nausea/Vomiting/Emesis GI Symptom: Negative for Nausea or Vomiting Diarrhea/Melena/Hematochezia GI Symptom: Negative for Diarrhea, Melena or Hematochezia Associated Symptoms Associated Symptoms: Negative for Dysuria, Frequency or Hematuria Narrative Narrative: Patient presents with abdominal pain that has been getting progressively worse over the past week. Patient states he has a history of diverticulitis in the past and his primary care physician started him on Cipro and Flagyl for possible diverticulitis. Patient states he has been taking this with no improvement. Patient states his pain is constant. Patient states it is diffuse but worse on the right upper abdomen. Patient describes the pain as aching and sharp at times. Patient states he is pain slightly improved after having a bowel move ment. Patient states nothing makes it worse. Patient denies any nausea or vomiting. Patient denies any diarrhea, melena, or hematochezia. Patient denies any dysuria, frequency, or hematuria. PFSH PFS Medical History Colitis Diverticulitis of intestine with abscess Home Medications montelukast 10 mg tablet 10 mg PO DAILY 12/09/20 [History Last Taken Unknown] cetirizine 10 mg tablet (Zyrtec) 10 mg PO DAILY Check with primary doctor 12/10/20 [History Last Taken 12/09/20] fluticasone propionate 50 mcg/actuation nasal spray,suspension 1 spray intranasal DAILY Check with primary doctor 12/10/20 [History Last Taken Unknown] ciprofloxacin HCl 500 mg tablet (Cipro) 500 mg PO BID #14 tabs 12/12/20 [Rx Last Taken Unknown] metronidazole 500 mg tablet (Flagyl) 500 mg PO TID #20 tabs 12/12/20 [Rx Last Taken Unknown] Allergy/AdvReac Type Severity Reaction Status Date / Time Penicillins Allergy PT UNSURE Verified 04/18/22 09:06 OF REACTION Surgical History [place] teeth extracted Social History Smoking Status: Never smoker ROS ROS ED Constitutional Constitutional ED: Denies chills or fever(s) Eyes Eyes: Denies blurry vision or change in vision ENT ENT ED: Denies rhinorrhea or sore throat Cardiovascular Cardiovascular: Denies chest pain or palpitations Respiratory/Chest Respiratory/Chest: Denies cough or dyspnea Gastrointestinal Gastrointestinal: Reports abdominal pain; Denies diarrhea, nausea or vomiting Genitourinary Genitourinary ED: Denies dysuria or hematuria Musculoskeletal Musculoskeletal: Denies back pain or neck pain Integumentary Denies abscess or rash Neurologic Neurologic: Denies headache(s) or weakness Allergic/Immunologic Allergic/Immunologic ED: Denies mouth swelling or urticaria EXAM Physical Exam Const Vital Signs: 04/18/22 09:03 Temperature 97.3 F L Temperature Source Temporal Pulse Rate 72 Respiratory Rate 16 Blood Pressure 135/76 H Blood Pressure Mean 95 Pulse Ox 98 Oxygen Delivery Method Room Air Positive well nourished and well developed General Appearance ED: well developed HEENT Reports moist mucous membranes Neck supple and no JVD Resp normal respiratory effort and clear to auscultation bilaterally Cardio regular rate, regular rhythm and no murmurs GI normal to inspection, nondistended, normoactive bowel sounds Palpation: soft and tender epigastric, LLQ, RLQ, RUQ and suprapubic; Negative for guarding or rebound tenderness present Extremity normal to inspection General Extremety ED: Negative for edema or tenderness General Extremity: Negative for edema Neuro oriented x3, CN's II-XII intact bilaterally and no sensory deficits noted Sensorium / Orientation: alert Motor Exam: strength 5/5 throughout Psych mental status grossly normal Skin no rashes or lesions noted MDM MDM MDM Narrative Medical decision making narrative: Patient was given IV fluids, morphine, and Zofran. CBC was within normal limits. Comprehensive metabolic profile showed a slightly elevated ALT of 144 and AST of 58. Total bilirubin was normal. Lipase was normal. Urinalysis does not show any evidence of urinary tract infection or hematuria. CT scan of the abdomen pelvis was obtained. There is some sludge or tiny calculi noted in the gallbladder. There is no evidence of cholecystitis. There is no evidence of appendicitis. There is no perforation or obstruction. There is no ascites noted. This was interpreted by the radiologist and reviewed by myself. Patient was advised of his findings. Patient was instructed to start with a liquid diet and advance as tolerated. Patient was instructed to continue his Cipro and Flagyl as prescribed. Patient was instructed to follow-up with his primary care physician in 3 to 5 days for reevaluation. Patient understood and was agreeable with the plan. All questions were answered. Lab Data Attestation: I reviewed the patient's lab results. Labs: Laboratory Results - last 24 hr 04/18/22 04/18/22 04/18/22 09:16 09:16 10:34 WBC 4.6 RBC 4.91 Hgb 14.3 Hct 42.7 MCV 87.0 MCH 29.1 MCHC 33.5 RDW Std Deviation 39.2 RDW Coeff of Dimitrios 12.3 Plt Count 252 MPV 11.1 Immature Gran % (Auto) 0.200 Neut % (Auto) 56.5 Lymph % (Auto) 29.8 [place] % (Auto) 11.8 H Eos % (Auto) 1.3 Baso % (Auto) 0.4 Absolute Neuts (auto) 2.6 Absolute Lymphs (auto) 1.37 Nucleated RBC % 0 Sodium 139 Potassium 4.2 Chloride 108 H Carbon Dioxide 28.0 Anion Gap 3 L BUN 12 Creatinine 0.82 Estim Creat Clear Calc 195.33 Est GFR (MDRD) Af Amer 144 Est GFR (MDRD) Non-Af 119 BUN/Creatinine Ratio 14.6 Glucose 96 Calcium 9.2 Total Bilirubin 0.40 AST 58 H ALT 144 H Alkaline Phosphatase 61 Total Protein 7.8 Albumin 4.5 Globulin 3.3 Albumin/Globulin Ratio 1.4 Lipase 79 Urine Color Yellow Urine Clarity Clear Urine pH 6.5 Ur Specific [place] 1.005 Urine Protein Negative Urine Glucose (UA) Normal Urine Ketones Negative Urine Occult Blood Negative Urine Nitrite Negative Urine Bilirubin Negative Urine Urobilinogen Normal Ur Leukocyte Esterase Negative Urine RBC 0 SEEN Urine WBC 0 SEEN Ur Squamous Epith Cells 0 SEEN Urine Bacteria 0 SEEN Urine Mucus 0 SEEN Radiography Diagnostic Testing: Clinical Impression(s) from Imaging Studies Abdomen/Pelvis CT 04/18/22 09:54 IMPRESSION: There is no appendicitis, colitis, ascites, abscess, collection, perforation or obstruction. Mild colonic diverticulosis, hepatic steatosis, tiny gallbladder calculi or sludge and minimal levoscoliosis are stable findings. Electronically Signed: Milagros Renner MD at 11:47 EST Reading Location ID and State: , Service support , Discharge Plan Triage Chief Complaint: Abd Pain ED Provider: Orlin Pickett Dx/Rx/DC Orders Clinical Impression: Abdominal pain, History of diverticulitis of colon Instructions: ED Abdominal Pain Unkn Cause Male... Prescriptions: No Action montelukast 10 mg tablet 10 mg PO DAILY cetirizine [Zyrtec] 10 mg Tablet 10 mg PO DAILY fluticasone propionate 50 mcg/actuation [place],Suspension 1 spray INTRANASAL DAILY ciprofloxacin HCl [Cipro] 500 mg tablet 500 mg PO BID Qty: 14 0RF metronidazole [Flagyl] 500 mg tablet 500 mg PO TID Qty: 20 0RF Primary Care Provider: Gerardo Santo Referrals: Gerardo Santo MD [Primary Care Provider] - 3-5 Days Disposition Disposition: Home, Self Care
== END 2022-04-18 13:13 | disposition home or self-care (01) ==
PROVIDERS: Emergency Provider Emergency Medicine; PCP Family Medicine; Visit Provider Emergency Medicine
DX: R10.9 Unspecified abdominal pain (principal); Z87.19 Personal history of other diseases of the digestive system
CPT/HCPCS: 74177; 80053; 81001; 83690; 85025; 99283; J7030; Q9967; A4216; J2405

== ENCOUNTER 2024-08-05 14:47 | Emergency (ER) | payer OTHER, SELFPAY ==
[2024-08-05 14:48] VITALS: BP 133/95; PULSE 76; RESP 16; TEMP 36.5; O2SAT 97; BMI 27.3
--- NOTE | 2024-08-05 15:00 | CT_ITS ---
PROCEDURE: ABDOMEN/PELVIS W IV CONT ONLY 08/05/2024 REASON FOR EXAM: LLQ PAIN TECHNIQUE: Abdomen and pelvis CT with intravenous contrast. Coronal and Sagittal reconstruction series were provided. PATIENT PREPARATION: Per protocol ORAL CONTRAST TYPE: None. AMOUNT: mL One or more dose reduction techniques were used (e.g., Automated exposure control, adjustment of the mA and/or kV according to patient size, use of iterative reconstruction technique. FINDINGS: Lung bases: Lung bases are clear. Liver: Normal size. No mass. Gallbladder: Surgically absent. Spleen: Normal size. Pancreas: Normal size without evidence of mass surrounding inflammation or ductal dilation. Adrenals: Unremarkable. Kidneys: Normal renal sizes. No hydronephrosis. Bladder: Unremarkable. Reproductive Organs: Unremarkable. Bowel: Multiple diverticula throughout the colon consistent diverticulosis. Furthermore, there is focal wall thickening and stranding of the surrounding fat of the anterior margin of the distal descending colon at the level of the iliac crest consistent with diverticulitis. No loculated fluid collection to suggest abscess. No pneumoperitoneum to suggest perforation. Small amount of free fluid in the right side of the pelvis. Appendix: Unremarkable. Lymph nodes: Unremarkable. Vasculature: The abdominal aorta and IVC are normal. Peritoneum / Retroperitoneum: Unremarkable. Bones: Mild levoscoliosis of the lumbar spine. CT/Abdomen/Pelvis W IV Cont ONLY IMPRESSION: Diverticulitis of the distal descending colon with a small amount of free fluid but no abscess or perforation. Reading Location: [id number]
--- NOTE | 2024-08-05 15:02 | ED.VIS.GI ---
HPI HPI - GI History of Present Illness Chief Complaint: Abd Pain Informant: patient and spouse/S.O. Narrative Narrative: Presents here with his partner for evaluation worsening left lower quadrant pain over 2 days. Inconsistent bowel movements for 2 weeks. No fever chills or sweats. No urinary symptoms. History of diverticulitis 4 years ago felt similar. Had follow-up colonoscopy with Dr. Bosch at that time. Allergy to penicillin. Today had a bowel movement small amount of blood. No anticoagulants. Prior similar symptoms: Yes PFSH PFSH Medical History Diverticulitis of intestine with abscess Colitis Home Medications ?Medication ?Instructions ?Recorded ?Last Taken ?Type montelukast 10 mg tablet 10 mg PO DAILY 12/09/20 Unknown History cetirizine 10 mg tablet (Zyrtec) 10 mg PO DAILY Check with primary 12/10/20 12/09/20 History doctor fluticasone propionate 50 1 spray intranasal DAILY Check 12/10/20 Unknown History mcg/actuation nasal with primary doctor spray,suspension ciprofloxacin HCl 500 mg tablet 500 mg PO BID #14 tabs 12/12/20 Unknown Rx (Cipro) metronidazole 500 mg tablet 500 mg PO TID #20 tabs 12/12/20 Unknown Rx (Flagyl) cefdinir 300 mg capsule 300 mg PO Q12H #20 caps 08/05/24 Unknown Rx metronidazole 500 mg tablet 500 mg PO Q8H #30 tabs 08/05/24 Unknown Rx Allergy/AdvReac Type Severity Reaction Status Date / Time Penicillins Allergy PT UNSURE Verified 08/05/24 14:51 OF REACTION Surgical History [place] teeth extracted Social History Smoking Status: Never smoker ROS ROS ED Constitutional Constitutional ED: Denies chills, fever(s) or sweats ENT ENT ED: Denies sore throat Cardiovascular Cardiovascular: Denies chest pain, leg edema, palpitations or racing heartbeat Respiratory/Chest Respiratory/Chest: Denies cough, dyspnea or dyspnea on exertion Gastrointestinal Gastrointestinal: Reports abdominal pain and other Details: Mild blood in stool today. ; Denies diarrhea, nausea or vomiting Genitourinary Genitourinary ED: Denies dysuria, hematuria or urinary frequency Musculoskeletal Musculoskeletal: Denies back pain, extremity pain or neck pain Integumentary Denies rash or wounds Neurologic Neurologic: Denies headache(s), paresthesias or weakness EXAM Physical Exam Const Vital Signs: 08/05/24 14:48 08/05/24 16:47 Temperature 97.7 F L 98 F Temperature Source Oral Pulse Rate 76 78 Respiratory Rate 16 16 Blood Pressure 133/95 H 138/72 H Blood Pressure Mean 107 94 Pulse Ox 97 99 Oxygen Delivery Method Room Air Positive well nourished and well developed General Appearance ED: well developed and NAD HEENT Reports moist mucous membranes normocephalic and atraumatic Eyes General Eye ED: Yes normal appearance of both eyes Neck full ROM Chest Wall Chest: Negative for tenderness Resp normal respiratory effort and normal air movement Effort and Inspection: symmetric chest movement; Negative for respiratory distress Cardio regular rate, regular rhythm and no murmurs Peripheral Pulses: pulses 2+ throughout GI normal to inspection, nondistended, normoactive bowel sounds GI Narrative: Tender palpation left lower quadrant. Palpation: Negative for guarding or rebound tenderness present Extremity normal to inspection General Extremety ED: Negative for edema or tenderness General Extremity: Negative for edema Neuro oriented x3 and no sensory deficits noted Sensorium / Orientation: awake and alert Skin no rashes or lesions noted and no wounds MDM MDM MDM Narrative Medical decision making narrative: Interventions / MDM: Differential diagnosis: Diverticulitis, abdominal pain Diagnosis considered but do not suspect: Kidney stone however CT negative. No complicated diverticulitis with perforation or abscess CT abdomen pelvis: Descending colon diverticulitis no perforation or abscess. Also read by radiology. My EKG interpretation: N/A Imaging independently reviewed and interpreted by myself: N/A External documents reviewed: N/A Test considered but not ordered:N/A ED course: Increasing pain left lower quadrant. Blood in stools. History of diverticulitis. Labs were ordered, CT scan. Fluids given. He declines any pain medicines at this time. Labs normal CTs confirmed descending colon diverticulitis. He started on cefdinir and Flagyl. He will avoid alcohol products. He will continue Tylenol every 6 hours as needed. Return precaution discussed otherwise he will follow-up with his surgeon Dr. Bosch as he seen in the past for his last flare. All questions were answered. Re-evaluation: stable Disposition discussed with patient/family/significant other: Patient and significant other Case discussed with consulting clinician: N/A This note was generated with [employer] dictation software. It may contain incorrect words, spelling, and punctuation that were not noted in checking the note before signing. Lab Data Attestation: I reviewed the patient's lab results. Labs: Laboratory Results - last 24 hr 08/05/24 15:10 WBC 10.4 RBC 4.71 Hgb 14.0 Hct 39.2 L MCV 83.2 MCH 29.7 MCHC 35.7 RDW Std Deviation 36.5 RDW Coeff of Dimitrios 11.9 Plt Count 278 MPV 10.2 Immature Gran % (Auto) 0.300 Neut % (Auto) 65.0 Lymph % (Auto) 22.4 Branch % (Auto) 11.6 H Eos % (Auto) 0.4 Baso % (Auto) 0.3 Absolute Neuts (auto) 6.8 Absolute Lymphs (auto) 2.33 Nucleated RBC % 0 Sodium 135 Potassium 3.6 Chloride 100 Carbon Dioxide 22.8 Anion Gap 13 BUN 9 Creatinine 0.77 Estim Creat Clear Calc 158.53 Est GFR (MDRD) Non-Af 123 BUN/Creatinine Ratio 12.3 Glucose 86 Calcium 9.6 Radiography Diagnostic Testing: Clinical Impression(s) from Imaging Studies Abdomen/Pelvis CT 08/05/24 15:00 IMPRESSION: Diverticulitis of the distal descending colon with a small amount of free fluid but no abscess or perforation. Reading Location: [facility] Discharge Plan Triage Chief Complaint: Abd Pain ED Provider: Don San Dx/Rx/DC Orders Clinical Impression: Diverticulitis of descending colon, Abdominal pain Instructions: ED Diverticulitis Prescriptions: New metronidazole 500 mg tablet 500 mg PO Q8H Qty: 30 0RF cefdinir 300 mg capsule 300 mg PO Q12H Qty: 20 0RF No Action montelukast 10 mg tablet 10 mg PO DAILY cetirizine [Zyrtec] 10 mg Tablet 10 mg PO DAILY fluticasone propionate 50 mcg/actuation [place],Suspension 1 spray INTRANASAL DAILY ciprofloxacin HCl [Cipro] 500 mg tablet 500 mg PO BID Qty: 14 0RF metronidazole [Flagyl] 500 mg tablet 500 mg PO TID Qty: 20 0RF Primary Care Provider: Gerardo Santo Referrals: Sloan Bosch MD [Med Staff - Active Staff] - 1-2 Weeks Gerardo Santo MD [[facility]] - Activity Restrictions/Additional Instructions: Uncomplicated diverticulitis of the descending colon similar area from urinary inflammation 4 years ago. Taking finish antibiotics right to continue Tylenol every 6 hours as needed. Bowel rest with light diet. Develop fevers worsening pain, return to ED for reevaluation otherwise follow-up with Dr. Bosch. Print Language: [place]e Disposition Disposition: Home, Self Care Discharge Date/Time: 08/05/24 16:49
[2024-08-05] MEDS: 0.9% Normal Saline (500mL Bag) 500 ML 999 ML IV (15:07)
[2024-08-05 15:16] LABS: Absolute Lymphocyte Count 2.33 X10^3/uL (0.83-4.51); Absolute Neutrophil Count 6.8 X10^3/uL (2.0-7.7); Basophil# 0.03 X10^3/uL; Basophil% 0.3 % (0-1); Eosinophil# 0.04 X10^3/uL; Eosinophils% 0.4 % (0-5); Hematocrit 39.2 % (40-54); Lymphocyte # 2.33 X10^3/ul (0.83-4.51); Lymphocyte % 22.4 % (19-41); Mean Corp Hgb Conc 35.7 g/dL (32-36); Mean Corpuscular Hgb 29.7 pg (27.0-32.0); Mean Corpuscular Volume 83.2 fL (80-94); Mean Platelet Vol. 10.2 fl (6.2-12.0); Monocyte# 1.21 X10^3/uL; Monocyte% 11.6 % (0-10); NRBC Flagged by Analyzer 0 % (0-5); Neutrophil # 6.77 X10^3/uL (2.7-7.7); Platelet Count 278 K/mm3 (150-450); RBC Distribution Width CV 11.9 % (11.6-14.6); RBC Distribution Width SD 36.5 fl (35.1-43.9); Red Blood Count 4.71 M/mm3 (4.6-6.2); White Blood Count 10.4 K/mm3 (4.4-11.0)
[2024-08-05 15:33] LABS: Anion Gap 13 (5-15); BUN 9 mg/dL (4-19); BUN/Creat Ratio 12.3 RATIO (10-20); Calcium,Total 9.6 mg/dL (7.6-11.0); Carbon Dioxide 22.8 mmol/L (21.0-32.0); Chloride 100 mmol/L (98-108); Creatinine, Serum 0.77 mg/dL (0.70-1.20); EST Glomerular Filtration Rate 123 (>60); Estimated Creatinine Clearance 158.53 ml/min (50-250); Glucose 86 mg/dL (70-99); Potassium 3.6 mmol/L (3.3-5.1); Sodium Level 135 mmol/L (133-145)
[2024-08-05] MEDS: Cefdinir 300 MG Capsule PO (16:41)
[2024-08-05] MEDS: metroNIDAZOLE 500 MG Tablet PO (16:41)
[2024-08-05 16:47] VITALS: BP 138/72; PULSE 78; RESP 16; TEMP 36.6; O2SAT 99
== END 2024-08-05 16:49 | disposition home or self-care (01) ==
PROVIDERS: Emergency Provider Emergency Medicine; PCP Family Medicine; Visit Provider Emergency Medicine
DX: K57.32 Diverticulitis of large intestine without perforation or abscess without bleeding (principal); Z88.0 Allergy status to penicillin
CPT/HCPCS: 74177; 80048; 85025; 96360; 96361; 99283; Q9967; A4216